=== PATIENT | female | born 1950 | race American Indian/Alaskan Native ===

== ENCOUNTER 2018-11-11 10:13 | Outpatient (CLI) | payer MEDICARE, OTHER ==
--- NOTE | 2018-11-11 11:10 | XRay Report ---
METASTATIC SURVEY:11/11/18 CLINICAL: Monoclonal gammopathy FINDINGS: Lateral skull: Negative Cervical spine: Negative except for degenerative disc disease. Thoracic spine: Negative Lumbar spine: Negative except for degenerative disc disease. Chest and ribs: Negative Bilateral humerus: Negative Pelvis and hips: Negative Bilateral femur: Negative IMPRESSION: Negative with no suspicious bone lesion.
== END 2018-11-11 10:14 | disposition home or self-care (01) ==
LOC: SPVIMAG 10:13
PROVIDERS: ATTEND Internal Medicine Hematology & Oncology
DX: D47.2 Monoclonal gammopathy (principal); Z90.710 Acquired absence of both cervix and uterus
CPT/HCPCS: 77074